=== PATIENT | male | born 1965 | race Caucasian/White ===

== ENCOUNTER 2024-03-25 09:20 | Outpatient (CLI) | payer OTHER, SELFPAY | END 2024-03-25 09:21 | disposition home or self-care (01) | PROVIDERS: Visit Provider Emergency Medicine | DX: I10 Essential (primary) hypertension (principal); E78.5 Hyperlipidemia, unspecified | CPT/HCPCS: 82565 ==

== ENCOUNTER 2024-05-06 08:13 | Outpatient (CLI) | payer OTHER, SELFPAY | END 2024-05-06 08:14 | disposition home or self-care (01) | PROVIDERS: PCP Emergency Medicine; Visit Provider Emergency Medicine | DX: I10 Essential (primary) hypertension (principal); R73.09 Other abnormal glucose; Z13.6 Encounter for screening for cardiovascular disorders; Z12.5 Encounter for screening for malignant neoplasm of prostate; Z87.39 Personal history of other diseases of the musculoskeletal system and connective tissue | CPT/HCPCS: 80053; 80061; 84550; G0103 ==

== ENCOUNTER 2024-06-30 10:47 | Outpatient (CLI) | payer OTHER, SELFPAY | END 2024-06-30 10:48 | disposition home or self-care (01) | LOC: LKVREF 10:48 | PROVIDERS: PCP Emergency Medicine; Visit Provider Emergency Medicine | DX: R73.09 Other abnormal glucose (principal) | CPT/HCPCS: 82947 ==

== ENCOUNTER 2024-07-13 09:57 | Outpatient (CLI) | payer OTHER, SELFPAY ==
--- NOTE | 2024-07-27 09:13 | W.PM.SLEEP ---
Sleep Study Details Details Interpreting Provider: [place] Date of Sleep Study: 07/13/24 Sleep Study Details: STUDY TYPE:? Home unattended ? BMI:? 31.6 ORDERING PROVIDER:? [place] INDICATION:? Concern about sleep apnea ? SLEEP SUMMARY:? 346 minutes monitored RESPIRATORY SUMMARY:? AHI 57.7 Low oxygen 77 8.8% of study oxygen less than 90% Snoring 93.5% Sixty-five central apneas, 29 obstructive apneas, 239 hypopneas PERIODIC LIMB MOVEMENTS OF SLEEP:? Not recorded CARDIAC:? Range 65-106, mean 75.3 beats per minute IMPRESSION:? Severe obstructive sleep apnea with fairly frequent central apneas (over 65 central apneas, 29 obstructive apneas, 2 and 39 hypopneas) RECOMMENDATION: Would recommend an in-lab titration. If AutoSet CPAP issues close follow-up is recommended.
== END 2024-07-13 09:58 | disposition home or self-care (01) ==
LOC: SLEEP 09:59
PROVIDERS: PCP Emergency Medicine; Visit Provider Otolaryngology
DX: G47.33 Obstructive sleep apnea (adult) (pediatric) (principal)
CPT/HCPCS: 95806

== ENCOUNTER 2024-07-19 11:49 | Outpatient (CLI) | payer OTHER, SELFPAY ==
--- NOTE | 2024-07-19 13:02 | P.ANES_ITS ---
Anesthesia Charges Start Date/Time Anesthesia Start Date: 07/19/24 Anesthesia Start Time: 12:33 Stop Date/Time Anesthesia Stop Date: 07/19/24 Anesthesia Stop Time: 13:01 Coding CPT Codes CPT Codes: ANES LWR INTST NDSC NOS - [id number] ([id number]) P3 - PATIENT W/SEVERE SYS DISEASE, QK - CHEMICAL BLENDER 2-4 CNCRNT ANES PROC, QX - MUSEUM INFORMATICS SPECIALIST SVC W/ MD MED DIRECTION
--- NOTE | 2024-07-19 13:02 | W.ANESCHARGE ---
Anesthesia Charges Start Date/Time Anesthesia Start Date: 07/19/24 Anesthesia Start Time: 12:33 Stop Date/Time Anesthesia Stop Date: 07/19/24 Anesthesia Stop Time: 13:01 Coding CPT Codes CPT Codes: ANES LWR INTST NDSC NOS - [id number] ([id number]) P3 - PATIENT W/SEVERE SYS DISEASE, QK - PHARMACIST HOSPITAL 2-4 CNCRNT ANES PROC, QX - MEDICAL PRACTITIONERS SVC W/ MD MED DIRECTION
--- NOTE | 2024-07-19 13:31 | P.ANES_ITS ---
Anesthesia Charges Start Date/Time Anesthesia Start Date: 07/19/24 Anesthesia Start Time: 12:33 Stop Date/Time Anesthesia Stop Date: 07/19/24 Anesthesia Stop Time: 13:01 Coding CPT Codes CPT Codes: ANES LWR INTST NDSC NOS - [id number] ([id number]) QK - PEDIATRIC ONCOLOGY NURSE 2-4 CNCRNT ANES PROC, QX - VIBRATION TECHNICIAN SVC W/ MED DIRECTION, P3 - PATIENT W/SEVERE SYS DISEASE
--- NOTE | 2024-07-19 13:31 | W.ANESCHARGE ---
Anesthesia Charges Start Date/Time Anesthesia Start Date: 07/19/24 Anesthesia Start Time: 12:33 Stop Date/Time Anesthesia Stop Date: 07/19/24 Anesthesia Stop Time: 13:01 Coding CPT Codes CPT Codes: ANES LWR INTST NDSC NOS - [id number] ([id number]) QK - EXPANDER 2-4 CNCRNT ANES PROC, QX - CLIENT ANALYST SVC W/ MED DIRECTION, P3 - PATIENT W/SEVERE SYS DISEASE
== END 2024-07-19 11:50 | disposition home or self-care (01) ==
LOC: OP CLINIC 11:50
PROVIDERS: PCP Emergency Medicine; Visit Provider Internal Medicine
DX: Z12.11 Encounter for screening for malignant neoplasm of colon (principal); D12.5 Benign neoplasm of sigmoid colon
CPT/HCPCS: 00811; 00812; 45380; 88305; J2704

== ENCOUNTER 2024-09-15 08:36 | Outpatient (CLI) | payer OTHER, SELFPAY | END 2024-09-15 08:37 | disposition home or self-care (01) | LOC: NFLDREF 09-16 22:42 | PROVIDERS: PCP Emergency Medicine; Referring Provider Emergency Medicine; Visit Provider Emergency Medicine | DX: E78.2 Mixed hyperlipidemia (principal) | CPT/HCPCS: 80061 ==